=== PATIENT | male | born 1980 | race Caucasian/White ===

== ENCOUNTER 2018-12-17 18:23 | Outpatient (CLI) ==
[2018-12-17 18:39] VITALS: BMI 22.5
== END 2018-12-17 18:24 | disposition home or self-care (01) ==
LOC: AMBL 18:23
PROVIDERS: ATTEND Internal Medicine Geriatric Medicine
DX: S01.511A Laceration without foreign body of lip, initial encounter (principal); K08.119 Complete loss of teeth due to trauma, unspecified class; S10.91XA Abrasion of unspecified part of neck, initial encounter; S80.211A Abrasion, right knee, initial encounter; S00.411A Abrasion of right ear, initial encounter; M25.561 Pain in right knee; M79.89 Other specified soft tissue disorders; W19.XXXA Unspecified fall, initial encounter

== ENCOUNTER 2018-12-17 18:35 | Emergency (ER) ==
[2018-12-17 18:39] VITALS: BP 129/86; TEMP 96.8; BMI 22.5
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
[2018-12-17] MEDS: MOTRIN PO STA (20:09)
[2018-12-17] MEDS: PERCOCET 7.5-325 PO STA (20:09)
--- NOTE | 2018-12-17 20:29 | CT ---
CT cervical spine without contrast HISTORY: Post traumatic neck pain TECHNIQUE: CT of the cervical spine with multiplanar reformations. FINDINGS: Reformatted images demonstrate normal alignment with preservation of vertebral body height . No significant degenerative change. No fracture seen on the axial or reformatted images. No acut e surrounding soft tissue abnormalitites. Lung apices are clear. IMPRESSION: No acute findings in the cervical spine.
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
--- NOTE | 2018-12-17 20:33 | DI ---
EXAM: Three views of the right shoulder HISTORY: Right shoulder pain post fall. COMPARISON: None FINDINGS: There is no cortical irregularity or displaced fracture of the right shoulder. The acromio clavicular joint is normal. The glenohumeral joint is unremarkable. There is no lytic or blastic le jed. The soft tissues and adjacent osseous structures are normal. IMPRESSION: No acute abnormality or displaced fracture of the right shoulder.
--- NOTE | 2018-12-17 20:36 | DI ---
EXAM: Four views of the right knee HISTORY: Right knee pain. COMPARISON: None FINDINGS: Medial and lateral compartments are normal. There is no lytic or blastic lesion. There is no lytic or blastic lesion. There is no periosteal reaction. The patella is normal in appearance. The soft tissues are normal. IMPRESSION: No acute abnormality of the right knee.
== END 2018-12-17 21:00 ==
LOC: ED 18:35
DX: S01.511A Laceration without foreign body of lip, initial encounter (principal); S70.11XA Contusion of right thigh, initial encounter; S43.401A Unspecified sprain of right shoulder joint, initial encounter; M25.561 Pain in right knee; R51 Headache; M54.2 Cervicalgia; F17.210 Nicotine dependence, cigarettes, uncomplicated; W19.XXXA Unspecified fall, initial encounter; Y35.891A Legal intervention involving other specified means, law enforcement official injured, initial encounter
CPT/HCPCS: 99283